=== PATIENT | male | born 1970 | race Two or more races ===

== ENCOUNTER 2020-09-06 18:37 | Inpatient (IN) | payer OTHER ==
[~2020-09-06] VITALS: Ht 182.9 cm; Wt 112.0 kg
--- NOTE | 2020-09-06 23:25 | NUR ---
RN NOTE PATIENT ARRIVED TO UNIT AROUND THIS TIME VIA [facility]. PATIENT IS A 50 YEAR OLD MALE, DIRECT ADMIT FROM [facility] WITH DX OF ETOH WITHDRAWAL. FULL CODE. PER REPORT FROM MAKENNA JAFFE, PATIENT DRINKS 1-2 PINTS OF VODKA A DAY. PATIENT IS AWAKE, ALERT, ORIENTED X4, ABLE TO MAKE NEEDS KNOWN IN [place]. SPEECH IS CLEAR AND COHERENT. BREATHING IS EVEN AND UNLABORED, NO SOB NOTED. O2 SAT IS 97% ON ROOM AIR. LUNG SOUNDS ARE CLEAR. SKIN IS CLEAN, DRY, AND WARM TO TOUCH. NOTED MULTIPLE DISCOLORATIONS ON PATIENT'S BILATERAL UPPER AND LOWER EXTREMITIES, AND A SCAB ON LEFT UPPER BACK AREA. ALSO NOTED HERNIA ON LOWER ABDOMEN. ABDOMEN IS SOFT AND NON-TENDER. PATIENT IS CONTINENT OF BOWEL AND BLADDER. PATIENT IS AMBULATORY, GAIT IS STEADY. IV SITE ON LEFT AC IS PATENT, SALINE FLUSHED. MRSA SWAB DONE AND GIVEN TO LAB. PER PATIENT, HE HAS ALREADY RECEIVED FLU VACCINE THIS YEAR. BELONGINGS DONE BY SHELBY MINAYA. ORIENTED PATIENT TO ROOM. CALL LIGHT IS WITHIN EASY REACH. BED IS LOWERED TO LOW POSITION FOR SAFETY. WILL CONTINUE TO MONITOR.
[2020-09-06 23:56] VITALS: BP 176/114
[2020-09-07 01:29] LABS: BASOPHILS % (AUTO) 0.8 % (0.0-2.0); EOSINOPHILS % (AUTO) 0.2 % (0.0-6.0); HEMATOCRIT 39 % (39-51); LYMPHOCYTES % (AUTO) 23.1 % (20.0-44.0); MEAN CORPUSCULAR HGB CONC 34 g/dl (31.0-36.0); MEAN CORPUSCULAR VOLUME 106 fL (80-96); MONOCYTES # (AUTO) 0.6 /CMM (0.1-1.30); MONOCYTES % (AUTO) 12.9 % (2.0-12.0); NEUTROPHILS # (AUTO) 2.8 /CMM (1.8-8.9); PLATELET COUNT (AUTO) 130 /CMM (150-450); RED BLOOD CELL COUNT(AUTO) 3.67 MIL/uL (4.5-6.0); WHITE BLOOD COUNT (AUTO) 4.4 K/uL (4.3-11.0)
[2020-09-07] MEDS ORDERED: hydrALAZINE HCL 10 MG TABLET PO PRN (01:30)
[2020-09-07] MEDS ORDERED: ACETAMINOPHEN 650 MG/20.3 ML UDC PO PRN (01:30)
[2020-09-07 01:36] LABS: CALCIUM, SERUM 7.7 mg/dL (8.5-10.1); CREATININE 0.9 mg/dL (0.6-1.3); POTASSIUM 3.3 mmol/L (3.5-5.1)
[2020-09-07] MEDS: LORAZEPAM INJ 2 MG/ML VIAL IV PRN ×2 (03:33→11:58)
[2020-09-07 04:00] VITALS: BP 168/104
[2020-09-07 04:25] LABS: LYMPHOCYTES % (MANUAL) 18 % (16-48); MONOCYTES % (MANUAL) 7 % (0-11.0); NEUTROPHILS % (MANUAL) 75 (42-76)
--- NOTE | 2020-09-07 06:56 | NUR ---
RN NOTE PATIENT IS RESTING COMFORTABLY AT THIS TIME. PRN HYDRALAZINE MED GIVEN FOR SBP OF 178. SBP WENT DOWN TO 168. WILL ENDORSE TO SHIFT RN FOR CONTINUATION OF CARE.
--- NOTE | 2020-09-07 07:28 | NUR ---
MOTOR COACH TOUR OPERATOR NOTE: PT IN BED, ASLEEP BUT AROUSABLE TO VERBAL STIMULI. PT A/0X4. PT ON RA, O2 SAT 97-99%. NO RESPIRATORY DISTRESS OR SOB. PT ON MONITOR SHOWING SR. PT HAS LAC ACCESS INTACT AND PATENT, NO SIGNS OF INFILTRATION OR INFECTION. PT AMBULATORY. PT BED IN LOCKED LOWEST POSITION. CALL LIGHT WITHIN REACH. ALL SAFETY MEASURES IN PLACE. WILL CONTINUE TO MONITOR CLOSELY.
[2020-09-07 08:00] VITALS: BP 151/99
[2020-09-07] MEDS ORDERED: AMLO10TA7 PO (08:11)
[2020-09-07] MEDS ORDERED: ARIP5TAB59 PO (08:11)
[2020-09-07] MEDS ORDERED: SERT50TA12 PO (08:11)
[2020-09-07] MEDS ORDERED: TRAZ-182 PO (08:11)
[2020-09-07 08:14] VITALS: BP 151/99
[2020-09-07] MEDS ORDERED: AMLODIPINE BESYLATE 5 MG TABLET PO SCH (09:00)
--- NOTE | 2020-09-07 09:38 | NUR ---
RN MS NOTE: RN TO D/C TELEMETRY AND TRANSFER TO MED-SURG, PER MD PEÑA'S ORDERS.
[2020-09-07] MEDS ORDERED: POTASSIUM CHLORIDE 20 MEQ TAB.PRT.SR PO SCH (10:30)
[2020-09-07] MEDS ORDERED: TRAZODONE 50 MG TABLET PO PRN (10:30)
--- NOTE | 2020-09-07 10:53 | NUR ---
RN MS NOTE: PT FACESHEET SENT TO [facility] MD [facility] FOR PSYCH CONSULT.
[2020-09-07] MEDS ORDERED: CLONIDINE HCL 0.1 MG TABLET PO PRN (12:00)
--- NOTE | 2020-09-07 13:07 | NUR ---
RN MS1 PATIENT DISCHARGE PAPERS SIGNS, BELONGS SIGNED. BELONGINGS GIVEN TO PATIENT . PATIENT REFUSED PICTURES FOR WOUNDS PATIENT EDUCATION 3X TIMES. IV LINES TAKEN OUT OF PATIENT .
[2020-09-07 15:53] LABS: CHOLESTEROL 187 mg/dL (<200); HDL CHOLESTEROL 46 mg/dL (40-60); LDL 112 mg/dL (0-99); THYROID STIMULATING HORMONE 3.074 uIU/mL (0.358-3.74); TRIGLYCERIDES 172 mg/dL (30-150)
[2020-09-07 15:57] LABS: MAGNESIUM 1.8 mg/dL (1.8-2.4)
[2020-09-07] MEDS ORDERED: ARIPIPRAZOLE 5 MG TABLET PO SCH (22:00)
[2020-09-08] MEDS ORDERED: SERTRALINE HCL 50 MG TABLET PO SCH (09:00)
[2020-09-08] MEDS ORDERED: FOLIC ACID 1 MG TABLET PO SCH (09:00)
[2020-09-08] MEDS ORDERED: MULTIVITAMINS,THERAGRAN 1 UDTAB TABLET PO SCH (09:00)
[2020-09-08] MEDS ORDERED: THIAMINE HCL 100 MG TABLET PO SCH (09:00)
== END 2020-09-07 13:00 | disposition home or self-care (01) | DRG 775 ==
LOC: TELE1 23:17 → MEDSG1 09-07 08:46
PROVIDERS: ADMIT Internal Medicine; ATTEND Internal Medicine
DX: F10.239 Alcohol dependence with withdrawal, unspecified (principal); Y90.9 Presence of alcohol in blood, level not specified; E87.6 Hypokalemia; I10 Essential (primary) hypertension; R00.0 Tachycardia, unspecified; F10.229 Alcohol dependence with intoxication, unspecified; F99 Mental disorder, not otherwise specified
CPT/HCPCS: 36415; 80048-TC; 80061-TC; 83735-TC; 84100-TC; 84439-TC; 84443-TC; 84484-TC; 85025-TC; 87081-TC; 93307-TC; G0378; J2060